=== PATIENT | female | born 1980 | race African-American/Black ===

== ENCOUNTER 2023-01-27 03:30 | Emergency (ER) | payer OTHER, SELFPAY ==
--- NOTE | ~2023-01-27 | CT_ITS ---
EXAMINATION: CT abdomen pelvis w con DATE: 01/27/2023 06:38 INDICATION: Painful umbilical hernia. TECHNIQUE: Computed tomography (CT) of the abdomen and pelvis was performed with 100 mL Omnipaque 350 intravenous contrast. Automated exposure control and iterative reconstruction technique were employe d. The dose-length product was 366.97 mGy-cm. COMPARISON: None. FINDINGS: The visualized portions of the lung bases are clear without pneumonia or pleural effusion. The heart size is normal. No pericardial effusion. There is a small sliding hiatal hernia. The liver, gallbladder, pancreas, adrenal glands, and kidneys are normal. Stool distends the rectum. There is s mall bowel in an umbilical hernia. The small bowel is dilated proximal to the hernia, consistent with obstruction. There are no pathologically enlarged lymph nodes. There is no free intraperitoneal flui d. There is severe lower lumbar spondylosis. IMPRESSION: 1. Small bowel obstruction secondary to an umbilical hernia. Reviewed, dictated and finalized at location E.
[2023-01-27 03:46] VITALS: BP 152/87; PULSE 70; RESP 15; TEMP 36.8; O2SAT 99
[2023-01-27 03:49] LABS: Basophils Percent Auto 0.2 % (0.2-1.2); Eosinophils Percent Auto 0.2 % (0-4.4); Hematocrit 35.1 % (37.0-47.0); Hemoglobin 11.1 g/dL (12.0-15.0); Immature Granulocyte Absolute 0.02 K/mm3 (0.00-0.031); Immature Granulocyte Percent A 0.2 % (0-0.5); Lymphocytes Absolute Auto 2.65 K/mm3 (0.9-3.2); Lymphocytes Percent Auto 30.3 % (18.3-44.2); Mean Corpuscular HGB Conc 31.6 g/dl (32-36); Mean Corpuscular Hemoglobin 29.6 pg (26-34); Mean Corpuscular Volume 93.6 fl (80-100); Mean Platelet Volume 11.3 fl (7.4-10.4); Monocytes Absolute Auto 0.4 K/mm3 (0.1-0.6); Monocytes Percent Auto 4.7 % (2.6-8.5); Neutrophils Absolute Auto 5.6 K/mm3 (1.3-6.7); Neutrophils Percent Auto 64.4 % (45.5-73.1); Platelet Count Result 248 k/mm3 (150-375); Red Blood Count 3.75 M/mm3 (4.2-5.4); Red Cell Distribution Width 14.4 % (11.5-14.5); White Blood Count 8.7 K/mm3 (4.5-10.0)
[2023-01-27 03:57] LABS: Alanine Aminotransferase 12 U/L (6-35); Albumin Level 4.3 g/dL (3.5-5.1); Alkaline Phosphatase 41 U/L (38-126); Anion Gap 3 mmol/L (8-16); Aspartate Amino Transferase 18 U/L (14-36); Bilirubin,Total 0.4 mg/dL (0.2-1.3); Blood Urea Nitrogen 9 mg/dL (7-17); Calcium 8.9 mg/dL (8.4-10.2); Carbon Dioxide 30 mmol/L (22-30); Chloride 102 mmol/L (98-107); Estimated CRCL calculation 99 ml/min; Estimated Glomerular Filt Rate > 60; Glucose 115 mg/dL (65-110); Lipase 30 U/L (23-300); Potassium 3.5 mmol/L (3.4-5.0); Sodium 135 mmol/L (137-145)
[2023-01-27 05:42] VITALS: BP 154/90; PULSE 57; RESP 16; O2SAT 100
[2023-01-27 05:53] LABS: Appearance Urine Clear (Clear); Bacteria Urine None Seen /hpf; Bilirubin Urine Negative (Negative); Blood Urine Negative (Negative); Color Urine Yellow (Yellow); Glucose Urine UA Negative (Negative); Ketones Urine Negative (Negative); Leukocyte Esterase Ur Negative LEU/UL (Negative); Nitrate Urine Negative (Negative); Non Pathogenic Casts 0-2; Protein Urine Trace mg/dL (Negative); Specific Grav Ur 1.018 (1.001-1.035); Squamous Epithelial Cell Urine Few /hpf (Few); Urobilinogen Urine 0.2 mg/dL (<2.0); WBC Urine 0-5 /hpf
[2023-01-27] MEDS: ONDANSETRON INJ 4 MG/2 ML VIAL IV PUSH (06:17)
[2023-01-27] MEDS: HYDROmorphone HCL INJ (*CRX) 1 MG/ML SYR 0.5 MG IV PUSH (06:17)
[2023-01-27 06:18] LABS: Add Urine Microscopic? YES
[2023-01-27] MEDS: MORPHINE SULFATE (*CRX) 4 MG/ML INJ IV PUSH (07:18)
[2023-01-27 07:20] VITALS: BP 155/73; PULSE 103; RESP 16; O2SAT 100
--- NOTE | 2023-01-27 07:34 | ED.ABDPAIN ---
HPI - Abdominal Pain General Chief Complaint: Abdominal Pain Stated Complaint: abdominal pain/hernia Time Seen by Provider: 01/27/23 06:59 History of Present Illness HPI narrative: Patient is a 43-year-old female who presents ER with periumbilical pain. Sudden onset this evening. Has a known hernia since giving to her child 2 years ago. She has a pain and lump in the area that is worse with tender movement. She is nauseous. No diarrhea. She has had a bowel movement today. No fevers or chills or sweats. Unable to push it back in due to tenderness. Related Data Allergies Allergy/AdvReac Type Severity Reaction Status Date / Time No Known Allergies Allergy Verified 01/27/23 05:41 Procedures Other Procedure Procedure 1: Other Procedure: Hernia reduction: Umbilical hernia with incarceration was reduced with direct pressure/manipulation after the patient received IV morphine 4 mg x 1. Verbal consent obtained. No complications other than expected discomfort. Course Course Emergency Course: Patient received 4 mg of morphine in the incarcerated bowel was reduced. She is much more comfortable. I discussed case with general surgery and patient is appropriate for outpatient follow-up for surgical repair. Patient verbalized understanding of treatment plan. Vital Signs Vital signs: Vital Signs Temperature 98.2 F 01/27/23 03:46 Pulse Rate 70 01/27/23 03:46 Respiratory Rate 15 01/27/23 03:46 Blood Pressure 152/87 H 01/27/23 03:46 Pulse Oximetry 99 01/27/23 03:46 Oxygen Delivery Room Air 01/27/23 03:46 Temperature 98.2 F 01/27/23 03:46 Pulse Rate 103 H 01/27/23 07:20 Respiratory Rate 16 01/27/23 07:20 Blood Pressure 155/73 H 01/27/23 07:20 Pulse Oximetry 100 01/27/23 07:20 Oxygen Delivery Room Air 01/27/23 03:46 MDM - Abdominal Pain Lab Data 01/27/23 03:42 01/27/23 03:42 Labs: Lab Results 01/27/23 01/27/23 Range/Units 03:42 05:44 WBC 8.7 (4.5-10.0) K/mm3 RBC 3.75 L (4.2-5.4) M/mm3 Hgb 11.1 L (12.0-15.0) g/dL Hct 35.1 L (37.0-47.0) % MCV 93.6 (80-100) fl MCH 29.6 (26-34) pg MCHC 31.6 L (32-36) g/dl RDW 14.4 (11.5-14.5) % Plt Count 248 (150-375) k/mm3 MPV 11.3 H (7.4-10.4) fl Immature Gran % (Auto) 0.2 (0-0.5) % Neut % (Auto) 64.4 (45.5-73.1) % Lymph % (Auto) 30.3 (18.3-44.2) % [place] % (Auto) 4.7 (2.6-8.5) % Eos % (Auto) 0.2 (0-4.4) % Baso % (Auto) 0.2 (0.2-1.2) % Lymph # (Auto) 2.65 (0.9-3.2) K/mm3 [place] # (Auto) 0.4 (0.1-0.6) K/mm3 Eos # (Auto) 0.0 (0-0.3) K/mm3 Baso # (Auto) 0.0 (0.0-0.1) K/mm3 Abs Immat Gran (auto) 0.02 (0.00-0.031) K/mm3 Absolute Neuts (auto) 5.6 (1.3-6.7) K/mm3 Absolute Nucleated RBC 0.0 (0.0-0.012) K/mm3 Nucleated RBC % 0.0 (0.0-0.2) % Sodium 135 L (137-145) mmol/L Potassium 3.5 (3.4-5.0) mmol/L Chloride 102 (98-107) mmol/L Carbon Dioxide 30 (22-30) mmol/L Anion Gap 3 L (8-16) mmol/L BUN 9 (7-17) mg/dL Creatinine 0.60 L (0.7-1.0) mg/dL Estim Creat Clear Calc 99 ml/min Estimated GFR > 60 (59 - ) Glucose 115 H (65-110) mg/dL Calcium 8.9 (8.4-10.2) mg/dL Total Bilirubin 0.4 (0.2-1.3) mg/dL AST 18 (14-36) U/L ALT 12 (6-35) U/L Alkaline Phosphatase 41 (38-126) U/L Total Protein 8.0 (6.3-8.2) g/dL Albumin 4.3 (3.5-5.1) g/dL Lipase 30 (23-300) U/L Urine Color Yellow (Yellow) Urine Appearance Clear (Clear) Urine pH 8.0 (5.0-9.0) Ur Specific [place] 1.018 (1.001-1.035) Urine Protein Trace (Negative) mg/dL Urine Glucose (UA) Negative (Negative) mg/dL Urine Ketones Negative (Negative) mg/dL Ur Blood (Man) Negative (Negative) Urine Nitrate Negative (Negative) Urine Bilirubin Negative (Negative) Urine Urobilinogen 0.2 (<2.0) mg/dL Leukocyte Esterase Rfl Negative (Negative) GERALD/UL Urine RBC 3
[2023-01-27 08:00] VITALS: BP 126/70; PULSE 55; RESP 16; TEMP 36.3; O2SAT 98
[2023-01-27 09:00] VITALS: BP 141/89; PULSE 53; RESP 16; TEMP 36.4; O2SAT 100
== END 2023-01-27 09:21 | disposition home or self-care (01) ==
LOC: ANHED 09:02
PROVIDERS: Emergency Medicine; Emergency Provider Emergency Medicine
DX: K42.0 Umbilical hernia with obstruction, without gangrene (principal)
CPT/HCPCS: 36415; 74177; 80053; 81001; 81025; 83690; 85025; 96374; 96375; 99284; J1170; J2270; J2405; Q9967